=== PATIENT | male | born 1995 | race African-American/Black ===

== ENCOUNTER 2025-05-25 17:28 | Emergency (ER) | payer OTHER, SELFPAY ==
--- NOTE | 2025-05-25 18:59 | RAD REPORT ---
Exam:Humerus Right CLINICAL HISTORY: Right arm pain FINDINGS: No fracture seen
--- NOTE | 2025-05-25 19:00 | RAD REPORT ---
Exam:Forearm Right Clinical history: Right forearm pain Findings: No fracture seen
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
[2025-05-25] MEDS ORDERED: IBUPROFEN 400 MG TAB ONE (19:11)
[2025-05-25 21:42] VITALS: TEMP 98.6
[2025-05-25 21:43] VITALS: BP 132/89; O2SAT 100
== END 2025-05-25 19:20 | disposition home or self-care (01) ==
LOC: ER 17:28
DX: S40.021A Contusion of right upper arm, initial encounter (principal); S50.11XA Contusion of right forearm, initial encounter; W20.8XXA Other cause of strike by thrown, projected or falling object, initial encounter; Y93.9 Activity, unspecified; Y92.9 Unspecified place or not applicable
CPT/HCPCS: 99283